=== PATIENT | female | born 1995 | race Two or more races ===

== ENCOUNTER 2023-09-27 15:30 | Emergency (ER) | payer MEDICAID, OTHER ==
[~2023-09-27] VITALS: Ht 157.5 cm; Wt 97.2 kg
[2023-09-27 16:14] VITALS: BP 122/77; PULSE 95; RESP 18; TEMP 99.3; O2SAT 98
[2023-09-27 17:00] LABS: COVID19 ANTIGEN SOFIA FIA NEGATIVE (NEGATIVE)
[2023-09-27] MEDS ORDERED: ACETAMINOPHEN 500 MG TAB PO ONE (17:00)
[2023-09-27 17:01] LABS: Rapid Influenza B Negative (Negative)
[2023-09-27 17:03] LABS: Rapid Influenza A Positive (Negative)
[2023-09-27] MEDS ORDERED: ACET-1304 PO (17:13)
[2023-09-27] MEDS ORDERED: PROM1SOL4 PO (17:13)
[2023-09-27 17:23] LABS: Urine Bacteria FEW /hpf (None Seen); Urine Blood Negative /uL (Negative); Urine Clarity Clear (Clear); Urine Color Yellow (Yellow); Urine Mucus FEW (None Seen); Urine Protein, UAD TRACE (Negative); Urine Specific Gravity 1.035 (1.001-1.035); Urine Urobilinogen Normal (Negative); Urine WBC 6 /hpf (0 - 5); Urine pH 6.5 (5.0-8.0)
== END 2023-09-27 17:28 | disposition home or self-care (01) ==
LOC: ER 15:30
DX: J10.1 Influenza due to other identified influenza virus with other respiratory manifestations (principal); F10.10 Alcohol abuse, uncomplicated; Z32.02 Encounter for pregnancy test, result negative; Z20.822 Contact with and (suspected) exposure to COVID-19
CPT/HCPCS: 36415; 81001; 81025; 87426; 87804